=== PATIENT | female | born 1950 | race Caucasian/White ===

== ENCOUNTER 2019-06-09 07:29 | Day surgery (SDC) | payer OTHER ==
[2019-06-09] MEDS ORDERED: Zoledronic Acid/Mannitol/Water 5 MG/100 ML INFUS.BOT IV ONE (07:45)
[2019-06-09 08:14] VITALS: BP 115/75; TEMP 97.9; O2SAT 97; BMI 30.5
== END 2019-06-09 08:35 | disposition home or self-care (01) ==
LOC: DS 07:29
PROVIDERS: ATTEND Specialist
DX: M85.80 Other specified disorders of bone density and structure, unspecified site (principal)
CPT/HCPCS: 96365; J3489